=== PATIENT | female | born 1975 | race Hispanic/Latino ===

== ENCOUNTER → 2018-03-19 | Day surgery (SDC) | payer BC ==
[~2018-03-19] MED LIST: BUPIVACAINE HCL 0.5% INJ 30 ML VIAL INJ ONE; CEFAZOLIN SOD 1 GM/D5W 50ML 50 ML IV ONE; DEXAMETHASONE SOD PHOS INJ 4 MG/ML VIAL ONE; FENTANYL CITRATE/PF 100MCG/2 ML INJ ONE; IBUPROFEN200 MG PO; KETOROLAC TROMETHAMINE 30 MG/ML VIAL ONE; LIDOCAINE HCL 2% LOCAL INJ 5 ML SDV VIAL INJ ONE; MEPERIDINE HCL INJ 50 MG/ML INJ ONE; MIDAZOLAM HCL 2 MG/2 ML VIAL ONE; MORPHINE SULFATE INJ 4 MG/ML INJ ONE; MUPIROCIN 2% OINT 22 GM TUBE ONE; ONDANSETRON HCL INJ 2 MG/ML VIAL ONE; PROPOFOL IV EMULSION 10 MG/ML 20 ML VIAL ONE; SEVOFLURANE INHAL SOLN 250 ML PEN BTL ONE; TYLENOL WITH C1 EACH PO
--- NOTE | 2018-03-19 14:12 | Operative Report ---
DATE OF PROCEDURE: March 19, 2018 BOTTOM LOADER: Amador Martinez PA-C The patient was brought to the operating room for induction of anesthesia. Throughout this case, my PA's assistance was necessary for retraction of soft tissue and positioning of the extremity. This allows for efficient and technically successful execution of the operation and is considered medically necessary. PREOPERATIVE DIAGNOSIS: Left ankle bimalleolar fracture. POSTOPERATIVE DIAGNOSIS: Left ankle bimalleolar fracture. PROCEDURE: Open reduction internal fixation, left ankle. INDICATIONS: The patient is a 42-year-old lady who sustained a bimalleolar left ankle fracture. We discussed the findings and options and recommend open reduction with internal fixation. The risks and benefits have been explained. She states she understands and wishes to proceed. DESCRIPTION OF PROCEDURE: The patient was brought to the operating room and placed under general anesthetic. The left lower extremity was prepped and draped in a sterile manner. A preoperative time out was performed. The extremity was exsanguinated and a tourniquet was inflated to 300 mmHg. An incision was made over the medial aspect of the ankle. The fracture was carefully exposed and debrided. The deltoid ligament was involuted into the fracture site. This was cleared and the fracture was reduced. A 40 mm partially threaded cancellous screw was placed from distal to proximal. Anatomic reduction was obtained. I initiated placing a 2nd screw. This started across the fragmentation. I felt like 1 screw would provided adequate fixation without the risk of fragmenting the distal fragment. The wound was irrigated and closed with subcuticular Vicryl and khurram. Attention was directed towards the lateral aspect. Another incision was made and the fracture site was carefully exposed. The fracture was reduced and fixed with a 6-hole, one-third semi-tubular plate. The distal portion of the fracture was contoured to match the anatomy. Intraoperative x-rays confirmed anatomic reduction and good positioning of all the hardware. The lateral wound was also irrigated and closed with subcuticular Vicryl and khurram. A sterile bandage and a splint were applied. Estimated blood loss was less than 5 mL. At the end of the procedure, all needle and sponge counts were correct. Approximately, 8 mL of 0.5% Marcaine without epinephrine was injected around the incisions. Job#: [id number]
[2018-03-19 15:30] VITALS: BP 133/74
== END | disposition home or self-care (01) ==
LOC: OR 10:36
PROVIDERS: ATTEND Specialist
DX: S82.842A Displaced bimalleolar fracture of left lower leg, initial encounter for closed fracture (principal); W18.49XA Other slipping, tripping and stumbling without falling, initial encounter; Y93.01 Activity, walking, marching and hiking; Y92.89 Other specified places as the place of occurrence of the external cause; Z91.041 Radiographic dye allergy status
CPT/HCPCS: 27814; 76000; 81025; C1713 ×6; J0690; J1100; J1885; J2001; J2175; J2250; J2270; J2405; J2704